=== PATIENT | female | born 1980 | race Caucasian/White ===

== ENCOUNTER 2018-08-23 08:07 | Emergency (ER) | payer OTHER ==
[~2018-08-23] VITALS: Ht 162.6 cm; Wt 70.0 kg
[~2018-08-23 08:07] MED LIST: ANTIVERT25 MG PO; AUGMENTIN875TAB PO; HUMALOG100 UNIT/M SC; LEVEMIR1000 UNITS SC; MEDDOSEPAK PO; PROAIR HFA IN; ZOFRAN ODT4 MG OR; ZOFRAN ODT4 MG PO
[2018-08-23] MEDS ORDERED: PROAIR HFA108 MCG/AC IN (08:23)
[2018-08-23] MEDS ORDERED: TRESIBA FL100 UNIT/M SC (08:23)
[2018-08-23] MEDS ORDERED: NOVOLOG100 UNIT/M (08:24)
[2018-08-23 08:40] LABS: HEMATOCRIT 42.1 % (37.0-47.0); HEMOGLOBIN 13.9 g/dl (12.0-16.0); IMMATURE GRANULOCYTES 0.5 % (0.0-5.0); MEAN CELL VOLUME 93.1 fL CALC (80.0-100.0); MEAN CORPUSCULAR HGB 30.8 pG CALC (26.0-32.0); NEUT# 8.07 thou/uL (2.00-7.15); RED BLOOD COUNT 4.52 mill/uL (4.20-5.60); RED CELL DISTRI WIDTH 13.2 % (11.5-15.5)
[2018-08-23 08:47] LABS: ALBUMIN 4.4 g/dL (3.2-5.0); ALKALINE PHOSPHATASE 56 u/l (38-126); BILIRUBIN, TOTAL 0.4 mg/dL (0.0-1.4); BUN 21 mg/dL (7-17); BUN/CREATININE RATIO 31 (12-20 (CALC)); CARBON DIOXIDE 21 mmol/l (22-30); CHLORIDE 108 mmol/l (95-108); CREATININE 0.7 mg/dL (0.5-1.0); GFR > 60 ML/MIN (>=60 (CALC)); GFR FOR AFR.AMER. > 60 ML/MIN (>=60 (CALC)); SODIUM 141 mmol/l (137-146)
[2018-08-23 08:57] LABS: ANION GAP 17 (6-22 (CALC)); SGOT/AST 37 u/l (14-36); TOTAL PROTEIN 7.5 g/dL (6.3-8.2)
[2018-08-23 10:30] VITALS: BP 91/56
[2018-08-23 10:59] LABS: URINE BILIRUBIN - DIPSTICK NEGATIVE (NEGATIVE); URINE BLOOD DIPSTICK NEGATIVE (NEGATIVE); URINE COLOR YELLOW; URINE GLUCOSE - DIPSTICK 250 mg/dL (NEGATIVE); URINE KETONE 15 mg/dL (NEGATIVE); URINE LEUK ESTERASE NEGATIVE (NEGATIVE); URINE NITRITE - DIPSTICK NEGATIVE (Negative); URINE PH 5.5 (4.5-8.0); URINE PROTEIN - DIPSTICK NEGATIVE (NEG-TRACE); URINE SPECIFIC GRAVITY >=1.030; URINE UROBILINOGEN - DIPSTICK 0.2 E.U./dL (0.2)
== END 2018-08-23 10:30 | disposition home or self-care (01) | DRG 639 ==
LOC: ED 08:07
PROVIDERS: Emergency Medicine
DX: E11.649 Type 2 diabetes mellitus with hypoglycemia without coma (principal); F17.210 Nicotine dependence, cigarettes, uncomplicated; Z79.4 Long term (current) use of insulin

== ENCOUNTER 2019-07-26 15:48 | Emergency (ER) | payer BC ==
[~2019-07-26] VITALS: Ht 162.6 cm; Wt 68.1 kg
[~2019-07-26 15:48] MED LIST changes: +NOVOLOG100 UNIT/M; +PROAIR HFA108 MCG/AC IN; +TRESIBA FL100 UNIT/M SC
[2019-07-26 16:39] LABS: URINE BILIRUBIN - DIPSTICK NEGATIVE (NEGATIVE); URINE BLOOD DIPSTICK NEGATIVE (NEGATIVE); URINE COLOR YELLOW; URINE GLUCOSE - DIPSTICK 100 mg/dL (NEGATIVE); URINE KETONE NEGATIVE (NEGATIVE); URINE LEUK ESTERASE NEGATIVE (NEGATIVE); URINE NITRITE - DIPSTICK NEGATIVE (Negative); URINE PROTEIN - DIPSTICK NEGATIVE (NEG-TRACE); URINE UROBILINOGEN - DIPSTICK 0.2 E.U./dL (0.2)
[2019-07-26] MEDS ORDERED: AMOXICILLIN500 MG PO (17:57)
[2019-07-26] MEDS ORDERED: ULTRAM50 M1 PO (17:57)
[2019-07-26 18:15] VITALS: BP 107/63
== END 2019-07-26 18:15 | disposition home or self-care (01) | DRG 84 ==
LOC: ED 15:48
PROVIDERS: Emergency Medicine
DX: S06.9X9A Unspecified intracranial injury with loss of consciousness of unspecified duration, initial encounter (principal); S00.511A Abrasion of lip, initial encounter; E11.9 Type 2 diabetes mellitus without complications; W01.198A Fall on same level from slipping, tripping and stumbling with subsequent striking against other object, initial encounter; Y93.02 Activity, running; Y92.830 Public park as the place of occurrence of the external cause

== ENCOUNTER 2021-01-23 12:11 | Emergency (ER) | payer BC ==
[~2021-01-23] VITALS: Ht 162.6 cm; Wt 64.0 kg
[~2021-01-23 12:11] MED LIST changes: +AMOXICILLIN500 MG PO; +ULTRAM50 M1 PO
[2021-01-23 13:05] LABS: HEMATOCRIT 38.3 % (37.0-47.0); HEMOGLOBIN 12.4 g/dl (12.0-16.0); IMMATURE GRANULOCYTES 0.2 % (0.0-5.0); MEAN CELL VOLUME 92.1 fL CALC (80.0-100.0); MEAN CORPUSCULAR HGB 29.8 pG CALC (26.0-32.0); MEAN CORPUSCULAR HGB CONC 32.4 g/dL CAL (32.0-36.0); NEUT# 5.16 thou/uL (2.00-7.15); RED BLOOD COUNT 4.16 mill/uL (4.20-5.60); RED CELL DISTRI WIDTH 12.6 % (11.5-15.5)
[2021-01-23 13:28] LABS: ALBUMIN 3.8 g/dL (3.2-5.0); ALKALINE PHOSPHATASE 47 u/l (38-126); ANION GAP 11 (6-22 (CALC)); BILIRUBIN, TOTAL 0.4 mg/dL (0.0-1.4); BUN 16 mg/dL (7-17); BUN/CREATININE RATIO 19 (12-20 (CALC)); CARBON DIOXIDE 24 mmol/l (22-30); CHLORIDE 100 mmol/l (95-108); CREATININE 0.9 mg/dL (0.5-1.0); GFR > 60 ML/MIN (>=60 (CALC)); GFR FOR AFR.AMER. > 60 ML/MIN (>=60 (CALC)); POTASSIUM 4.8 mmol/l (3.5-5.1); SGOT/AST 34 u/l (14-36); TOTAL PROTEIN 6.9 g/dL (6.3-8.2)
[2021-01-23 13:29] LABS: SODIUM 130 mmol/l (137-146)
[2021-01-23] MEDS ORDERED: ZPAK PO (14:48)
[2021-01-23] MEDS ORDERED: MEDDOSEPAK PO (14:48)
[2021-01-23 14:55] VITALS: BP 115/73
== END 2021-01-23 15:27 | disposition home or self-care (01) | DRG 203 ==
LOC: ED 12:11
DX: J45.909 Unspecified asthma, uncomplicated (principal); E11.65 Type 2 diabetes mellitus with hyperglycemia; Z79.4 Long term (current) use of insulin; Z20.822 Contact with and (suspected) exposure to COVID-19

== ENCOUNTER → 2021-04-15 | Outpatient (REF) ==
[~2021-04-15] MED LIST changes: +ZPAK PO
== END | disposition home or self-care (01) | DRG 639 ==
LOC: LAB 12:26
PROVIDERS: ATTEND Internal Medicine Endocrinology, Diabetes & Metabolism
DX: E10.65 Type 1 diabetes mellitus with hyperglycemia (principal)